=== PATIENT | male | born 1970 | race Hispanic/Latino ===

== ENCOUNTER 2021-09-25 12:29 | Emergency (ER) | payer BC, OTHER ==
[2021-09-25] MEDS ORDERED: Lidocaine 1% PF 5 ML VIAL ONE (13:27)
[2021-09-25] MEDS ORDERED: Boostrix 0.5 ML (Tdap) VIAL ONE (13:27)
[2021-09-25] MEDS ORDERED: Ketorolac Tromethamine 30 MG/ML VIAL ONE (13:50)
[2021-09-25] MEDS ORDERED: Triple Antibiotic Oint 1 GM Packet ONE (15:00)
== END 2021-09-25 15:12 | disposition home or self-care (01) ==
LOC: ERS 12:29
DX: S61.012A Laceration without foreign body of left thumb without damage to nail, initial encounter (principal); I10 Essential (primary) hypertension; E78.5 Hyperlipidemia, unspecified; W26.0XXA Contact with knife, initial encounter
CPT/HCPCS: 12002; 90471; 90715; 96372; J1885